=== PATIENT | female | born 1965 | race Caucasian/White ===

== ENCOUNTER 2017-04-16 05:49 | Day surgery (SDC) | payer OTHER ==
[~2017-04-16] VITALS: Ht 154.9 cm; Wt 60.1 kg
[2017-04-16 07:05] VITALS: Ht 154.9 cm; Wt 60.1 kg
[2017-04-16] MEDS ORDERED: METFORMIN (07:11)
[2017-04-16] MEDS ORDERED: ATORVASTATIN (07:11)
[2017-04-16 07:50] VITALS: BP 114/72; PULSE 54; RESP 14
[2017-04-16] MEDS ORDERED: FENTAnyl 50 MCG/ML VIAL ONE (08:24)
[2017-04-16] MEDS ORDERED: MIDAZOLAM 1 MG/ML 2 ML INJ ONE ×2 (08:24)
[2017-04-16 08:48] VITALS: BP 108/59; PULSE 60; RESP 12
--- NOTE | 2017-04-16 09:06 | GILP ---
DATE OF PROCEDURE: 04/16/2017 NAME OF PROCEDURES: 1. Esophagogastroduodenoscopy and biopsy. 2. Colonoscopy and biopsy. SURGEON: Dr. Greco. PREOPERATIVE DIAGNOSES: 1. Abdominal pain. 2. Screening colonoscopy. POSTOPERATIVE DIAGNOSES 1. Gastritis with erosions. 2. Gastric mucosal biopsies were taken for H. pylori test. 3. Colonoscopy all the way to the cecum. 4. Small transverse colon polyp was removed using the biopsy forceps. 5. Internal hemorrhoids. INDICATION FOR THE PROCEDURE: Ms. Ruth Vergara is a 51-year-old female patient who had upper abdom inal pain, not responding to therapy. She also needed screening colonoscopy. The procedures and possible complications were well explained to the patient. The patient understoo d and consented to the procedure. DESCRIPTION OF PROCEDURE: Under the influence of fentanyl and Versed, the gastroscope was carefully introduced into the esophagus and under direct vision, it was advanced to the stomach and through t he pylorus into the duodenal bulb and descending duodenum. FINDINGS: ESOPHAGUS: The mucosa was normal. STOMACH: The patient had gastritis with erosions. Gastric mucosal biopsies were taken for H. pylor i test. DUODENUM: Normal. The colonoscope was carefully introduced in the rectum and under direct vision, it was advanced all the way to the cecum. FINDINGS: The patient had a small transverse colon polyp and it was removed using the biopsy forcep s. She was noted to have internal hemorrhoids. She tolerated the procedures very well and there was no complication from the procedures. At the en d of the procedures, she was awake with stable vital signs and she was discharged home to the care o f her family. IMPRESSION: 1. Gastritis with erosions. 2. Gastric mucosal biopsies were taken for Helicobacter pylori test. 3. Colonoscopy all the way to the cecum. 4. Small transverse colon polyp was removed using the biopsy forceps. 5. Internal hemorrhoids. PLAN: 1. Omeprazole 40 mg p.o. q.a.m. 2. Await histopathology reports. 3. Next screening colonoscopy in 10 years. Dictated By: REESE JOEL/SUMMER Conf#: [id number] DID#: [id number]
== END 2017-04-16 10:21 | disposition home or self-care (01) ==
LOC: GIL 05:49
PROVIDERS: ATTEND Internal Medicine Gastroenterology
DX: Z12.11 Encounter for screening for malignant neoplasm of colon (principal); K29.60 Other gastritis without bleeding; D12.3 Benign neoplasm of transverse colon; K64.8 Other hemorrhoids; E11.9 Type 2 diabetes mellitus without complications
CPT/HCPCS: 43239; 45380; 82962; 87081; 88305; J2250; J3010; Z7610